=== PATIENT | male | born 1935 | race Caucasian/White ===

== ENCOUNTER 2021-05-15 11:47 | Inpatient (IN) ==
[2021-05-15 12:32] LABS: Basophils % 0.3 % (0.0-0.8); Eosinophils # 0.1 10*3/uL (0.0-0.87); Eosinophils % 0.6 % (0.00-10.9); Hematocrit 45.4 VOL% (42.0-52.0); Hemoglobin 14.5 GM/DL (14.0-18.0); Immature Granulocytes % 0.7 %; Immature Granulocytes Absolute 0.06 #; Lymphocytes # 1.3 10*3/uL (1.4-4.0); Lymphocytes % 14.2 % (21.2-54.2); Mean Corpuscular HGB Conc 31.9 GM/DL (32-36); Mean Corpuscular Volume 102.3 FL (87-102); Mean Platelet Volume 10.8 FL (9.6-12.0); Monocytes % 7.5 % (1.7-12.7); Neutrophils % 76.7 % (38.7-73.9); Platelet Count 293 T/CUMM (130-400); Red Blood Count 4.44 MC/CUMM (3.8-5.5); Red Cell Distribution Width 14.2 % (9.3-17.3); White Blood Count 8.9 T/CUMM (4-12)
[2021-05-15 12:51] LABS: Albumin 3.4 G/DL (3.4-5.0); Calcium 9.7 MG/DL (8.5-10.1); Osmolality,Calculated 277.8 MOS/KG (273-304); Total Protein 6.7 G/DL (6.4-8.2)
[2021-05-15] MEDS ORDERED: DEXTROSE 50% 25 GM/50 ML SYRINGE IV ONE (13:03)
[2021-05-15] MEDS ORDERED: DEXTROSE 50% 25 GM/50 ML VIAL IV STA ×2 (13:05→15:32)
[2021-05-15] MEDS ORDERED: SODIUM CHLORIDE 0.9% 1,000 ML IV STA ×2 (13:17→15:33)
[2021-05-15] MEDS ORDERED: ONDANSETRON 4 MG/2 ML VIAL IV STA (15:25)
[2021-05-15] MEDS ORDERED: MORPHINE 10 MG/1 ML VIAL IV ONE (15:25)
[2021-05-15] MEDS ORDERED: GLUCAGON 1 MG VIAL IM PRN (15:40)
[2021-05-15] MEDS ORDERED: diphenhydrAMINE CAP 25 MG CAPSULE PO PRN (15:40)
[2021-05-15] MEDS ORDERED: hydrALAZINE 20 MG/1 ML VIAL IV PRN (15:40)
[2021-05-15] MEDS ORDERED: DEXTROSE 50% 25 GM/50 ML VIAL IV PRN ×2 (15:40→22:58)
[2021-05-15] MEDS ORDERED: ALBUTEROL/IPRATROPIUM 3 ML NEB RESP TX PRN (15:40)
[2021-05-15] MEDS ORDERED: PROMETHAZINE 25 MG TABLET PO PRN (15:40)
[2021-05-15] MEDS ORDERED: guaiFENesin/DM ER 600-30 MG TABLET PO PRN (15:40)
[2021-05-15 16:34] LABS: Bilirubin,Urine Negative (Negative); Blood, Urine Small mg/dL (Negative); Glucose,Urine (UA) Negative (Negative); Hyaline Casts,Urine 4 /LPF (0-3); Ketones,Urine 20 mg/dL (Negative); Mucus,Urine Occasional /LPF (Occasional); Nitrite,Urine Negative (Negative); Protein,Urine Negative; RBC,Urine 10 /HPF (0-4); Squamous Epithelial Cell,Urine Occasional /HPF (0-10); Urine Appearance CLEAR (Clear); Urine Color Amber (Yellow); Urine Specific Gravity 1.019 (1.001-1.035)
[2021-05-15 17:12] LABS: PT Patient Result 10.9 SECS (10.5-12.0); Partial Thromboplastin Time 25.4 SECS (23.9-33.8)
[2021-05-15] MEDS: ONDANSETRON 4 MG/2 ML VIAL IV PRN ×2 (18:30→21:27)
[2021-05-15] MEDS: ZALEPLON 5 MG CAPSULE PO PRN (21:27)
[2021-05-15] MEDS: HEPARIN 5,000 UNIT/1 ML VIAL SUBCUT SCH (21:28)
[2021-05-15] MEDS: MORPHINE 2 MG/1 ML SYRINGE IV PRN (21:28)
[2021-05-15] MEDS: DEXT 5% NACL 0.9% KCL 20 MEQ 20 MEQ/1,000 ML BAG IV SCH (21:50)
[2021-05-16] MEDS: ONDANSETRON 4 MG/2 ML VIAL IV PRN ×3 (01:22→21:14)
[2021-05-16] MEDS: MORPHINE 2 MG/1 ML SYRINGE IV PRN ×3 (01:22→09:40)
[2021-05-16 05:25] LABS: Basophils % 0.1 % (0.0-0.8); Eosinophils % 0.4 % (0.00-10.9); Hematocrit 38.6 VOL% (42.0-52.0); Immature Granulocytes % 0.7 %; Immature Granulocytes Absolute 0.05 #; Lymphocytes # 1.2 10*3/uL (1.4-4.0); Lymphocytes % 17.2 % (21.2-54.2); Mean Corpuscular HGB Conc 31.6 GM/DL (32-36); Mean Corpuscular Volume 103.5 FL (87-102); Mean Platelet Volume 11.5 FL (9.6-12.0); Monocytes % 10.3 % (1.7-12.7); Neutrophils % 71.3 % (38.7-73.9); Red Blood Count 3.73 MC/CUMM (3.8-5.5); Red Cell Distribution Width 14.4 % (9.3-17.3); White Blood Count 6.8 T/CUMM (4-12)
[2021-05-16 05:32] LABS: Hemoglobin 12.2 GM/DL (14.0-18.0); Platelet Count 222 T/CUMM (130-400)
[2021-05-16 05:36] LABS: Albumin 2.7 G/DL (3.4-5.0); Bilirubin,Direct 0.54 MG/DL (0.0-0.20); Bilirubin,Indirect 0.8 MG/DL (0.0-1.0); Bilirubin,Total 1.3 MG/DL (0.20-1.00); Total Protein 5.9 G/DL (6.4-8.2)
[2021-05-16 05:39] LABS: Calcium 8.5 MG/DL (8.5-10.1); Osmolality,Calculated 288.3 MOS/KG (273-304); Potassium 4.8 MMOL/L (3.5-5.1)
[2021-05-16] MEDS: BISACODYL 5 MG TABLET PO SCH (08:40)
[2021-05-16] MEDS: PANTOPRAZOLE 40 MG TABLET PO SCH (08:40)
[2021-05-16] MEDS: HEPARIN 5,000 UNIT/1 ML VIAL SUBCUT SCH ×2 (08:41→21:09)
[2021-05-16] MEDS: NICOTINE 21 MG/24 HR PATCH TRANSDERM SCH (08:41)
[2021-05-16] MEDS: DEXT 5% NACL 0.9% KCL 20 MEQ 20 MEQ/1,000 ML BAG IV SCH (13:35)
[2021-05-16 14:20] LABS: Thyroid Stimulating Hormone 0.868 uIU/ml (0.358-3.74)
[2021-05-16] MEDS: HYDROmorphone 2 MG/1 ML VIAL IV PRN ×2 (14:45→19:17)
[2021-05-16] MEDS: PROPRANOLOL 10 MG TABLET PO SCH ×2 (16:45→21:09)
[2021-05-17] MEDS: DEXT 5% NACL 0.9% KCL 20 MEQ 20 MEQ/1,000 ML BAG IV SCH ×2 (02:28→15:42)
[2021-05-17 04:24] LABS: Basophils % 0.3 % (0.0-0.8); Eosinophils # 0.1 10*3/uL (0.0-0.87); Eosinophils % 0.8 % (0.00-10.9); Hemoglobin 11.9 GM/DL (14.0-18.0); Immature Granulocytes % 1.1 %; Immature Granulocytes Absolute 0.08 #; Lymphocytes # 0.8 10*3/uL (1.4-4.0); Lymphocytes % 11.1 % (21.2-54.2); Mean Corpuscular HGB Conc 32.2 GM/DL (32-36); Mean Corpuscular Volume 102.5 FL (87-102); Mean Platelet Volume 10.7 FL (9.6-12.0); Neutrophils % 74.7 % (38.7-73.9); Platelet Count 200 T/CUMM (130-400); Red Blood Count 3.61 MC/CUMM (3.8-5.5); Red Cell Distribution Width 14.5 % (9.3-17.3); White Blood Count 7.5 T/CUMM (4-12)
[2021-05-17] MEDS: NICOTINE 21 MG/24 HR PATCH TRANSDERM SCH ×2 (04:42→09:38)
[2021-05-17 06:03] LABS: Sedimentation Rate-Westergren 25 MM/HR (0-20)
[2021-05-17 06:38] LABS: Folate 19.61 NG/ML (5.38-24.0); Vitamin B12 > 2000 PG/ML (211-911)
[2021-05-17] MEDS: PROPRANOLOL 10 MG TABLET PO SCH ×3 (08:58→21:28)
[2021-05-17] MEDS: PANTOPRAZOLE 40 MG TABLET PO SCH (08:58)
[2021-05-17] MEDS: HEPARIN 5,000 UNIT/1 ML VIAL SUBCUT SCH ×2 (08:58→21:27)
[2021-05-17] MEDS: BISACODYL 5 MG TABLET PO SCH (08:58)
[2021-05-17] MEDS: MORPHINE 2 MG/1 ML SYRINGE IV PRN ×3 (10:31→19:18)
[2021-05-17] MEDS: ONDANSETRON 4 MG/2 ML VIAL IV PRN ×2 (10:38→17:13)
[2021-05-17] MEDS: ZALEPLON 5 MG CAPSULE PO PRN (21:28)
[2021-05-17 22:51] LABS: Basophils % 0.3 % (0.0-0.8); Eosinophils % 0.1 % (0.00-10.9); Hematocrit 43.7 VOL% (42.0-52.0); Hemoglobin 13.4 GM/DL (14.0-18.0); Immature Granulocytes % 0.9 %; Immature Granulocytes Absolute 0.09 #; Lymphocytes # 1.6 10*3/uL (1.4-4.0); Lymphocytes % 14.9 % (21.2-54.2); Mean Corpuscular HGB Conc 30.7 GM/DL (32-36); Mean Corpuscular Volume 107.1 FL (87-102); Mean Platelet Volume 11.2 FL (9.6-12.0); Monocytes % 9.3 % (1.7-12.7); Neutrophils % 74.5 % (38.7-73.9); Platelet Count 252 T/CUMM (130-400); Red Blood Count 4.08 MC/CUMM (3.8-5.5); Red Cell Distribution Width 14.7 % (9.3-17.3); White Blood Count 10.5 T/CUMM (4-12)
[2021-05-17 23:02] LABS: Albumin 2.8 G/DL (3.4-5.0); Bilirubin,Total 1.6 MG/DL (0.20-1.00); Calcium 8.8 MG/DL (8.5-10.1); Potassium 4.8 MMOL/L (3.5-5.1); Total Protein 6.2 G/DL (6.4-8.2)
[2021-05-17 23:48] LABS: Bilirubin,Urine Negative (Negative); Blood, Urine Moderate mg/dL (Negative); Glucose,Urine (UA) Negative (Negative); Ketones,Urine Negative (Negative); Mucus,Urine Occasional /LPF (Occasional); Nitrite,Urine Negative (Negative); Protein,Urine Negative; RBC,Urine 24 /HPF (0-4); Squamous Epithelial Cell,Urine Occasional /HPF (0-10); Urine Appearance CLEAR (Clear); Urine Color Yellow (Yellow); Urine Specific Gravity 1.019 (1.001-1.035)
[2021-05-17 23:58] LABS: ABG Base Excess -7.9 MMOL/L (-2.5-2.5); ABG HCO3 18.1 MMOL/L (20-26); ABG Oxygen Saturation 99.6 % (95-100); ABG PCO2 38.9 MM HG (35-48); ABG PH 7.286 (7.35-7.45); ABG PO2 272.3 MM HG (80-95); ABG TCO2 19.3 MMOL/L (23-27)
[2021-05-18] MEDS: PIPERACILLIN/TAZOBACTAM 3,375 MG in SODIUM CHLORIDE 0.9% 100 ML IV SCH ×3 (00:25→15:41)
[2021-05-18 03:50] LABS: ABG Base Excess -6.7 MMOL/L (-2.5-2.5); ABG HCO3 18.8 MMOL/L (20-26); ABG Oxygen Saturation 99.2 % (95-100); ABG PH 7.313 (7.35-7.45); ABG PO2 190.8 MM HG (80-95)
[2021-05-18] MEDS: MORPHINE 2 MG/1 ML SYRINGE IV PRN (04:45)
[2021-05-18 06:38] LABS: Basophils % 0.1 % (0.0-0.8); Hematocrit 40.7 VOL% (42.0-52.0); Hemoglobin 12.9 GM/DL (14.0-18.0); Immature Granulocytes % 0.6 %; Immature Granulocytes Absolute 0.06 #; Lymphocytes # 0.9 10*3/uL (1.4-4.0); Lymphocytes % 9.8 % (21.2-54.2); Mean Corpuscular HGB Conc 31.7 GM/DL (32-36); Mean Corpuscular Volume 104.1 FL (87-102); Mean Platelet Volume 11.8 FL (9.6-12.0); Monocytes % 9.1 % (1.7-12.7); Neutrophils % 80.4 % (38.7-73.9); Platelet Count 230 T/CUMM (130-400); Red Blood Count 3.91 MC/CUMM (3.8-5.5); Red Cell Distribution Width 14.6 % (9.3-17.3); White Blood Count 9.6 T/CUMM (4-12)
[2021-05-18 07:07] LABS: Albumin 2.5 G/DL (3.4-5.0); Bilirubin,Total 2.2 MG/DL (0.20-1.00); Calcium 8.9 MG/DL (8.5-10.1); Osmolality,Calculated 291.8 MOS/KG (273-304); Total Protein 5.6 G/DL (6.4-8.2)
[2021-05-18 07:14] LABS: Band Neutrophils 2 % (0-10); Lymphocytes 3 % (20-55); Platelet Estimate Normal; Segmented Neutrophils 87 % (50-85); Total Cells Counted 100
[2021-05-18] MEDS ORDERED: amLODIPine 5 MG TABLET PO SCH (09:00)
[2021-05-18] MEDS: DEXTROSE 5% 1,000 ML IV SCH (09:30)
[2021-05-18] MEDS: ACETAMINOPHEN 325 MG TABLET PO PRN (09:33)
[2021-05-18] MEDS: PANTOPRAZOLE 40 MG TABLET PO SCH (09:34)
[2021-05-18] MEDS: HEPARIN 5,000 UNIT/1 ML VIAL SUBCUT SCH ×2 (09:34→20:45)
[2021-05-18] MEDS: BISACODYL 5 MG TABLET PO SCH (09:34)
[2021-05-18] MEDS: PROPRANOLOL 10 MG TABLET PO SCH (09:35)
[2021-05-18] MEDS: HYDROmorphone 2 MG/1 ML VIAL IV PRN (09:45)
[2021-05-18] MEDS: DEXT 5% NACL 0.9% KCL 20 MEQ 20 MEQ/1,000 ML BAG IV SCH (09:50)
[2021-05-18] MEDS: NICOTINE 21 MG/24 HR PATCH TRANSDERM SCH (09:56)
[2021-05-18 10:04] LABS: ABG Base Excess -5.5 MMOL/L (-2.5-2.5); ABG Oxygen Saturation 98.8 % (95-100); ABG PCO2 36.9 MM HG (35-48); ABG PH 7.337 (7.35-7.45); ABG TCO2 17.5 MMOL/L (23-27)
[2021-05-18] MEDS ORDERED: SODIUM CHLORIDE 0.9% 500 ML IV ONE (10:51)
[2021-05-19] MEDS: PIPERACILLIN/TAZOBACTAM 3,375 MG in SODIUM CHLORIDE 0.9% 100 ML IV SCH ×3 (00:35→20:50)
[2021-05-19] MEDS: DEXTROSE 5% 1,000 ML IV SCH ×2 (00:35→07:44)
[2021-05-19 02:56] LABS: ABG Base Excess -6.4 MMOL/L (-2.5-2.5); ABG HCO3 19.2 MMOL/L (20-26); ABG Oxygen Saturation 97.4 % (95-100); ABG PCO2 34.1 MM HG (35-48); ABG PH 7.343 (7.35-7.45); ABG PO2 92.8 MM HG (80-95); ABG TCO2 16.4 MMOL/L (23-27)
[2021-05-19 05:22] LABS: Basophils # 0.1 10*3/uL (0.0-0.2); Basophils % 0.4 % (0.0-0.8); Eosinophils % 0.2 % (0.00-10.9); Hematocrit 39.3 VOL% (42.0-52.0); Hemoglobin 12.6 GM/DL (14.0-18.0); Immature Granulocytes % 1.2 %; Immature Granulocytes Absolute 0.15 #; Lymphocytes # 1.5 10*3/uL (1.4-4.0); Lymphocytes % 11.6 % (21.2-54.2); Mean Corpuscular HGB Conc 32.1 GM/DL (32-36); Mean Corpuscular Volume 103.7 FL (87-102); Mean Platelet Volume 11.2 FL (9.6-12.0); Monocytes % 8.2 % (1.7-12.7); Neutrophils % 78.4 % (38.7-73.9); Platelet Count 214 T/CUMM (130-400); Red Blood Count 3.79 MC/CUMM (3.8-5.5); Red Cell Distribution Width 15.1 % (9.3-17.3); White Blood Count 12.5 T/CUMM (4-12)
[2021-05-19 05:49] LABS: Albumin 2.3 G/DL (3.4-5.0); Calcium 8.4 MG/DL (8.5-10.1); Osmolality,Calculated 284.5 MOS/KG (273-304); Total Protein 5.6 G/DL (6.4-8.2)
[2021-05-19] MEDS: HYDROmorphone 2 MG/1 ML VIAL IV PRN (08:20)
[2021-05-19] MEDS: BISACODYL 5 MG TABLET PO SCH (08:20)
[2021-05-19] MEDS: NICOTINE 21 MG/24 HR PATCH TRANSDERM SCH (08:47)
[2021-05-19] MEDS: PANTOPRAZOLE 40 MG VIAL IV SCH (08:55)
[2021-05-19] MEDS: DEXTROSE 5% NACL 0.9% 1,000 ML IV SCH ×2 (09:30→20:20)
[2021-05-19] MEDS ORDERED: SODIUM CHLORIDE 0.9% 1,000 ML IV ONE (11:13)
[2021-05-19] MEDS: INSULIN REGULAR 100 UNIT/ML SUBCUT SCH ×2 (11:52→18:27)
[2021-05-19 12:05] LABS: Hemoglobin A1 (Alkaline) 96.6 % (96.5-98.5); Hemoglobin A2 (Alkaline) 3.4 % (1.5-3.5)
[2021-05-19 14:01] VITALS: BP 154/74
[2021-05-19] MEDS: ALBUTEROL/IPRATROPIUM 3 ML NEB RESP TX SCH ×2 (14:13→19:41)
[2021-05-19 18:00] LABS: ABG Base Excess -7.5 MMOL/L (-2.5-2.5); ABG HCO3 18.4 MMOL/L (20-26); ABG Oxygen Saturation 96.5 % (95-100); ABG PCO2 32.5 MM HG (35-48); ABG PH 7.337 (7.35-7.45); ABG PO2 85.7 MM HG (80-95); ABG TCO2 15.5 MMOL/L (23-27)
[2021-05-19] MEDS ORDERED: LORazepam 2 MG/1 ML VIAL IV PRN (18:31)
[2021-05-19] MEDS ORDERED: ALPRAZolam 0.25 MG TABLET PO SCH (21:00)
[2021-05-20] MEDS: ALBUTEROL/IPRATROPIUM 3 ML NEB RESP TX SCH ×4 (00:53→19:14)
[2021-05-20] MEDS: MORPHINE 2 MG/1 ML SYRINGE IV PRN (01:04)
[2021-05-20] MEDS: INSULIN REGULAR 100 UNIT/ML SUBCUT SCH ×4 (01:07→19:21)
[2021-05-20] MEDS: ACETAMINOPHEN 325 MG TABLET PO PRN (02:32)
[2021-05-20 04:16] LABS: Allen Test Positive; Pt O2 Delivery Device Ventilator
[2021-05-20 04:18] LABS: ABG Base Excess -7.8 MMOL/L (-2.5-2.5); ABG HCO3 18.2 MMOL/L (20-26); ABG Oxygen Saturation 98.3 % (95-100); ABG PCO2 34.8 MM HG (35-48); ABG PH 7.314 (7.35-7.45); ABG TCO2 15.9 MMOL/L (23-27)
[2021-05-20 04:35] LABS: Basophils # 0.1 10*3/uL (0.0-0.2); Basophils % 0.5 % (0.0-0.8); Eosinophils % 0.1 % (0.00-10.9); Hematocrit 36.9 VOL% (42.0-52.0); Hemoglobin 11.7 GM/DL (14.0-18.0); Immature Granulocytes % 3.2 %; Immature Granulocytes Absolute 0.34 #; Lymphocytes % 9.5 % (21.2-54.2); Mean Corpuscular HGB Conc 31.7 GM/DL (32-36); Mean Corpuscular Volume 102.8 FL (87-102); Mean Platelet Volume 10.9 FL (9.6-12.0); Monocytes % 9.1 % (1.7-12.7); Neutrophils % 77.6 % (38.7-73.9); Platelet Count 178 T/CUMM (130-400); Red Blood Count 3.59 MC/CUMM (3.8-5.5); Red Cell Distribution Width 14.9 % (9.3-17.3); White Blood Count 10.6 T/CUMM (4-12)
[2021-05-20 05:07] LABS: Albumin 1.9 G/DL (3.4-5.0); Bilirubin,Total 2.8 MG/DL (0.20-1.00); Calcium 8.3 MG/DL (8.5-10.1); Osmolality,Calculated 287.4 MOS/KG (273-304); Potassium 4.2 MMOL/L (3.5-5.1); Total Protein 5.1 G/DL (6.4-8.2)
[2021-05-20] MEDS: DEXTROSE 5% NACL 0.9% 1,000 ML IV SCH ×2 (06:29→16:27)
[2021-05-20] MEDS: BISACODYL 5 MG TABLET PO SCH (08:50)
[2021-05-20] MEDS: PIPERACILLIN/TAZOBACTAM 3,375 MG in SODIUM CHLORIDE 0.9% 100 ML IV SCH ×2 (08:51→20:39)
[2021-05-20] MEDS ORDERED: ASPIRIN EC 81 MG TABLET PO SCH (09:00)
[2021-05-20] MEDS ORDERED: METOPROLOL TARTRATE 25 MG TABLET PO SCH (09:00)
[2021-05-20] MEDS: NICOTINE 21 MG/24 HR PATCH TRANSDERM SCH (09:50)
[2021-05-20] MEDS: PANTOPRAZOLE 40 MG VIAL IV SCH (10:31)
[2021-05-20] MEDS ORDERED: METOPROLOL TARTRATE 5 MG/5 ML VIAL IV SCH (20:20)
[2021-05-20] MEDS: PHENOL 1.4% THROAT SPRAY 177 ML BOTTLE PO PRN (20:39)
[2021-05-21] MEDS: ALBUTEROL/IPRATROPIUM 3 ML NEB RESP TX SCH ×4 (00:08→20:04)
[2021-05-21] MEDS: INSULIN REGULAR 100 UNIT/ML SUBCUT SCH ×2 (01:58→05:59)
[2021-05-21] MEDS: DEXTROSE 5% NACL 0.9% 1,000 ML IV SCH (02:38)
[2021-05-21 04:16] LABS: ABG Base Excess -9.6 MMOL/L (-2.5-2.5); ABG HCO3 16.8 MMOL/L (20-26); ABG Oxygen Saturation 96.4 % (95-100); ABG PO2 91.1 MM HG (80-95); ABG TCO2 16.4 MMOL/L (23-27); Allen Test Positive
[2021-05-21 06:04] LABS: Basophils # 0.1 10*3/uL (0.0-0.2); Eosinophils % 0.4 % (0.00-10.9); Hematocrit 36.4 VOL% (42.0-52.0); Hemoglobin 11.8 GM/DL (14.0-18.0); Immature Granulocytes % 6.9 %; Immature Granulocytes Absolute 0.58 #; Lymphocytes # 0.7 10*3/uL (1.4-4.0); Lymphocytes % 8.2 % (21.2-54.2); Mean Corpuscular HGB Conc 32.4 GM/DL (32-36); Mean Corpuscular Volume 102.8 FL (87-102); Mean Platelet Volume 11.6 FL (9.6-12.0); Monocytes % 14.2 % (1.7-12.7); NRBC # 0.03 10*3/uL; Neutrophils % 69.3 % (38.7-73.9); Platelet Count 169 T/CUMM (130-400); Red Blood Count 3.54 MC/CUMM (3.8-5.5); Red Cell Distribution Width 15.5 % (9.3-17.3); White Blood Count 8.4 T/CUMM (4-12)
[2021-05-21 06:28] LABS: Albumin 1.9 G/DL (3.4-5.0); Calcium 8.4 MG/DL (8.5-10.1); Osmolality,Calculated 299.4 MOS/KG (273-304); Potassium 4.2 MMOL/L (3.5-5.1); Total Protein 4.9 G/DL (6.4-8.2)
[2021-05-21 06:31] LABS: Band Neutrophils 2 % (0-10); Lymphocytes 8 % (20-55); Segmented Neutrophils 75 % (50-85); Total Cells Counted 100
[2021-05-21 06:33] LABS: Microcytosis 1+; Ovalocytes Slight; Polychromasia Slight
[2021-05-21 06:34] LABS: Platelet Estimate Adequate
[2021-05-21] MEDS ORDERED: LORazepam 2 MG/1 ML VIAL IV PRN (07:17)
[2021-05-21] MEDS ORDERED: METOPROLOL TARTRATE 5 MG/5 ML VIAL IV SCH (08:00)
[2021-05-21] MEDS: PIPERACILLIN/TAZOBACTAM 3,375 MG in SODIUM CHLORIDE 0.9% 100 ML IV SCH (08:11)
[2021-05-21] MEDS: NICOTINE 21 MG/24 HR PATCH TRANSDERM SCH (08:12)
[2021-05-21] MEDS: PANTOPRAZOLE 40 MG VIAL IV SCH (08:12)
[2021-05-21] MEDS: BISACODYL 5 MG TABLET PO SCH (09:06)
[2021-05-21] MEDS: PHENOL 1.4% THROAT SPRAY 177 ML BOTTLE PO PRN ×2 (10:00→15:39)
[2021-05-21] MEDS ORDERED: METOPROLOL TARTRATE 5 MG/5 ML VIAL IV PRN (11:26)
[2021-05-21 11:27] LABS: 25-Hydroxy D Total 46 ng/mL; 25-Hydroxy D2 < 4.0 ng/mL; 25-Hydroxy D3 46 ng/mL
[2021-05-21] MEDS: MORPHINE 2 MG/1 ML SYRINGE IV PRN ×3 (12:05→21:05)
[2021-05-21] MEDS ORDERED: LACTATED RINGERS 1,000 ML IV SCH (17:00)
[2021-05-22] MEDS: ALBUTEROL/IPRATROPIUM 3 ML NEB RESP TX SCH ×2 (00:35→07:20)
[2021-05-22] MEDS: MORPHINE 2 MG/1 ML SYRINGE IV PRN ×2 (01:15→05:10)
[2021-05-22] MEDS ORDERED: LORazepam 2 MG/1 ML VIAL ONE (07:39)
[2021-05-22] MEDS ORDERED: SODIUM CHLORIDE 0.9% 500 ML IV ONE (08:25)
== END 2021-05-22 09:14 | disposition expired | DRG 208 ==
LOC: N.ED 11:47 → SUATTDRO 15:40 → N.4E 15:40 → N.CC 05-17 22:24
PROVIDERS: ADMIT Internal Medicine; ATTEND Family Medicine
PROC: BRONCHB (2021-05-19 13:05)